=== PATIENT | female | born 1960 | race Caucasian/White ===

== ENCOUNTER 2019-05-06 14:38 | Emergency (ER) | payer BC, MEDICAID ==
[~2019-05-06] VITALS: Ht 154.9 cm; Wt 74.9 kg
[~2019-05-06 14:38] MED LIST: ALBU8.5H8 INH; ATOR20TA38 PO; IBUP-1542 PO; MELO15TA30 PO; NITR-58 PO
[2019-05-06 15:08] VITALS: Ht 154.9 cm; Wt 74.9 kg
[2019-05-06] MEDS ORDERED: ONDANSETRON 4 MG INJ IV STA (16:20)
[2019-05-06] MEDS ORDERED: KETOROLAC 30 MG INJ IV STA (16:20)
[2019-05-06 19:32] VITALS: BP 158/96; PULSE 68; RESP 18
== END 2019-05-06 19:32 | disposition home or self-care (01) ==
LOC: E/R 14:38 → EDBD 14:38 → E/R 19:32
DX: N30.00 Acute cystitis without hematuria (principal); R40.2142 Coma scale, eyes open, spontaneous, at arrival to emergency department; R40.2252 Coma scale, best verbal response, oriented, at arrival to emergency department; R40.2362 Coma scale, best motor response, obeys commands, at arrival to emergency department
CPT/HCPCS: 36415; 74176; 80053; 81001; 83690; 85025; 96374; 96375; 99285; J1885; J2405